=== PATIENT | female | born 1955 | race Caucasian/White ===

== ENCOUNTER → 2021-05-29 | Outpatient (CLI) | payer MEDICARE, MEDICAID ==
[~2021-05-29] MED LIST: ALEVE 220MG220 MG PO; CARDIZEM CD360 MG PO; CEPHALEXIN500 M1 PO; GLUCOPHAGE1000 MG PO; LASIX 40MG TABL40 MG PO; MOBIC15 MG PO; NEXIUM 40MG40 MG PO; TOPROL XL 50MG50 MG PO; XALATAN EYE DROPS OU
== END ==
LOC: MHCPAIN 13:53
DX: M47.812 Spondylosis without myelopathy or radiculopathy, cervical region (principal); M54.2 Cervicalgia; M54.50 Low back pain, unspecified; G89.29 Other chronic pain
CPT/HCPCS: G0463